=== PATIENT | male | born 1970 | race Caucasian/White ===

== ENCOUNTER 2016-11-12 10:56 | Emergency (ER) | payer BC ==
[2016-11-12 11:57] LABS: HEMOGLOBIN 15.4 gm/dl (14.0-17.5); RED BLOOD COUNT 4.81 M/UL (4.20-5.50)
[2016-11-12 12:08] LABS: BUN/CREATININE RATIO 25 (0-10)
== END 2016-11-12 13:51 | disposition home or self-care (01) ==
LOC: ER1 10:56
PROVIDERS: Physician Assistant
DX: R55 Syncope and collapse (principal); J40 Bronchitis, not specified as acute or chronic; S05.12XA Contusion of eyeball and orbital tissues, left eye, initial encounter; W06.XXXA Fall from bed, initial encounter
CPT/HCPCS: 36415; 70450; 80053; 82550; 82553; 83605; 83874; 84484; 85025; 87040; 93005; 96360; 99284; J7030

== ENCOUNTER → 2016-11-12 | Outpatient (CLI) | payer BC | LOC: RAD 10:34 | DX: R05 Cough (principal) | CPT/HCPCS: 71020 ==

== ENCOUNTER 2016-12-12 14:13 | Emergency (ER) | payer BC ==
[2016-12-12 15:20] LABS: HEMOGLOBIN 16.4 gm/dl (14.0-17.5); RED BLOOD COUNT 5.1 M/UL (4.20-5.50); WHITE BLOOD COUNT 13.6 K/UL (4.5-11.0)
[2016-12-12 15:45] LABS: BUN/CREATININE RATIO 28 (0-10)
== END 2016-12-12 18:07 | disposition home or self-care (01) ==
LOC: ER1 14:13
PROVIDERS: Family Medicine
DX: H81.399 Other peripheral vertigo, unspecified ear (principal); J45.909 Unspecified asthma, uncomplicated; Z79.899 Other long term (current) drug therapy
CPT/HCPCS: 36415; 70450; 71010; 80053; 82550; 82553; 83874; 84484; 85025; 93005; 96361; 96374; 96375; 99285; J2405; J2930

== ENCOUNTER → 2016-12-20 | Outpatient (CLI) | payer BC | LOC: RAD 10:52 | DX: R05 Cough (principal); J98.4 Other disorders of lung | CPT/HCPCS: 71020 ==